=== PATIENT | male | born 1985 | race Caucasian/White ===

== ENCOUNTER 2019-10-18 11:59 | Emergency (ER) | payer OTHER ==
[~2019-10-18] VITALS: Ht 182.9 cm; Wt 77.3 kg
[2019-10-18] MEDS ORDERED: ACETAMINOPHEN 500 MG TAB PO ONE (12:30)
[2019-10-18 12:56] LABS: BASO % 0.2 % (0.0-1.0); HEMATOCRIT 42.6 % (42.0-52.0); LYMPH # 0.8 10^3/uL (1.5-5.0); MEAN CORPUSCULAR HEMOGLOBIN 28.5 pg (27.0-33.0); MEAN CORPUSCULAR HGB CONC 32.9 g/dl (32.0-36.5); MEAN CORPUSCULAR VOLUME 86.8 fl (80.0-96.0); MONO # 0.6 10^3/uL (0.0-0.8); NEUTROPHILS # 11.3 10^3/uL (1.5-8.5); NEUTROPHILS % 88.4 % (36.0-66.0); PLATELET COUNT, AUTOMATED 189 10^3/uL (150-450); RED BLOOD COUNT 4.91 10^6/uL (4.30-6.10); WHITE BLOOD COUNT 12.8 10^3/uL (4.0-10.0)
[2019-10-18 13:21] LABS: INFLUENZA A AMPLIFICATION NEGATIVE (NEGATIVE); INFLUENZA B AMPLIFICATION NEGATIVE (NEGATIVE)
[2019-10-18] MEDS ORDERED: NS 1,000 ML IV ONE ×2 (14:45→16:15)
--- NOTE | 2019-10-18 15:17 | REP ---
CHEST, TWO VIEWS: There is no evidence of acute infiltrate. No pleural effusion is seen. The heart is normal in size. The mediastinal silhouette is unremarkable. The visualized osseous structures are intact. IMPRESSION: No acute pulmonary disease. Electronically Signed by Dash Resendiz MD 10/19/2019 12:35 P
[2019-10-18] MEDS ORDERED: KETOROLAC 30 MG/ML VIAL (J1885) IV ONE (16:00)
[2019-10-18] MEDS ORDERED: dexameTHASONE 4 MG/ML 1ML VIAL (J1100) IV ONE (16:00)
[2019-10-18 17:18] VITALS: BP 126/77
== END 2019-10-18 17:21 | disposition home or self-care (01) ==
LOC: EDBD 11:59 → M ED 11:59
DX: J02.0 Streptococcal pharyngitis (principal)
CPT/HCPCS: 71046; 80047; 81001; 85025; 87502; 87880; 96374; 96375; 99284; J1100; J1885